=== PATIENT | male | born 1965 | race Caucasian/White ===

== ENCOUNTER 2021-12-20 09:27 | Inpatient (IN) | payer BC, SELFPAY ==
[2021-12-20] VITALS (42 sets, daily range): BP systolic 110–169; BP diastolic 76–130; PULSE 76–136; RESP 22–41; TEMP 36.4–37.2; O2SAT 90–100; BMI 23.6
--- NOTE | ~2021-12-20 | CT_ITS ---
EXAMINATION: CTA chest PE protocol DATE: 12/20/2021 12:30 INDICATION: Hypoxia. TECHNIQUE: Computed tomography angiography (CTA) of the chest was performed with 100 mL Omnipaque-350 intravenous contrast timed to evaluate the pulmonary arteries. Coronal maximum intensity projection 3D-reconstructions were created by the technologist. Automated exposure control and iterative reconst ruction technique were employed. The dose-length product was 328.36 mGy-cm. COMPARISON: None. FINDINGS: There is mild emphysema. There are tree-in-bud opacities involving all lobes. No pleural ef fusion. The heart size is normal. No pericardial effusion. There is no pulmonary embolus. There is mi ld mediastinal and bilateral hilar lymphadenopathy. There are changes of cholecystectomy. There is mi ld thoracic spondylosis. There is mild chronic anterior wedging of T7 vertebral body. IMPRESSION: 1. No pulmonary embolus. 2. Tree-in-bud opacities involving all lobes, consistent with pneumonia. 3. Mild emphysema. 4. Mild mediastinal and bilateral hilar lymphadenopathy, likely reactive. Reviewed, dictated and finalized at location A.
--- NOTE | ~2021-12-20 | XR_ITS ---
XR chest 1V portable 12/21/2021 09:14 Indication: Dyspnea. Pneumonia. Procedure: AP portable chest Comparison: Comparison to multiple prior studies sequentially, with oldest reviewed study dated 03/05. Findings: Persistent interstitial infiltrates of the mid and lower lung zones. Heart size normal. No significant effusion. No pneumothorax. No acute osseous abnormality. Impression: 1: Bilateral interstitial infiltrates which may reflect mild edema versus atypical pneumonia. No sign ificant change. Reviewed, dictated and finalized at location A. Impression: 1: Bilateral interstitial infiltrates which may reflect mild edema versus atypi librado pneumonia. No significant change.
--- NOTE | ~2021-12-20 | XR_ITS ---
EXAMINATION: XR chest 1V portable DATE: 12/22/2021 13:44 INDICATION: COVID-19 pneumonia. TECHNIQUE: A single frontal view of the chest was obtained. COMPARISON: Chest single view 12/21/2021, chest CT 12/20/2021 FINDINGS: There is a reticulonodular pattern in the lungs. No pleural effusion or pneumothorax. The h eart size is normal. IMPRESSION: 1. Stable reticulonodular pattern in the lungs, consistent with pneumonia. Reviewed, dictated and finalized at location A.
--- NOTE | ~2021-12-20 | XR_ITS ---
EXAMINATION: XR chest 1V portable 12/26/2021 10:59 INDICATION: Pneumonia. PROCEDURE: AP portable chest COMPARISON: Comparison to multiple prior studies sequentially, with oldest reviewed study dated 03/05. FINDINGS: The lungs are clear. The cardiomediastinal silhouette is within normal limits. There are no pleural effusions. There is no pneumothorax suspected. There are bilateral nipple shadows. IMPRESSION: 1: NO ACUTE CARDIOPULMONARY DISEASE. Reviewed, dictated and finalized at location A.
--- NOTE | ~2021-12-20 | XR_ITS ---
EXAMINATION: XR chest 1V portable DATE: 12/20/2021 09:53 INDICATION: Hypoxia. Cough. TECHNIQUE: A single frontal view of the chest was obtained on 2 radiographs. COMPARISON: Chest 2 views 03/23/2011 FINDINGS: There are interstitial opacities in the mid and lower lung zones. No pleural effusion or pn eumothorax. The heart size is normal. Surgical clips in the right upper quadrant are likely from chol ecystectomy. IMPRESSION: 1. Interstitial opacities in the mid and lower lung zones, consistent with mild pulmonary edema versu s atypical pneumonia. Reviewed, dictated and finalized at location A. IMPRESSION: 1. Interstitial opacities in the mid and lower lung zones, consistent with mild pulmonary edema versus atypical pneumonia.
--- NOTE | 2021-12-20 09:34 | ECG_ITS ---
Measurements Intervals [place] Rate: 111 P: [place]: 0 QRS: 123 QRSD: 142 T: 32 QT: 334 QTc: 455 Interpretive Statements SINUS TACHYCARDIA VENTRICULAR PREMATURE COMPLEXES RIGHT BUNDLE BRANCH BLOCK LEFT POSTERIOR FASCICULAR BLOCK BASELINE ARTIFACT- I, II, III, AVR, AVL, AVF, V2-V6 ABNORMAL ECG NO PREVIOUS ECG AVAILABLE FOR COMPARISON Electronically Signed On 12-20-2021 21:38:16 CDT by Manuel Prince D.O.
--- NOTE | 2021-12-20 09:45 | ED.SOB ---
HPI - SOB/Dyspnea General Chief Complaint: Shortness of Breath/Dyspnea Stated Complaint: SOB Time Seen by Provider: 12/20/21 09:34 Source: patient and RN notes reviewed Mode of arrival: EMS Limitations: clinical condition History of Present Illness HPI Narrative: This is a 56 year old year old male smoker who presents for evaluation of respiratory distress. Patient states his was diagnosed with COVID so he was tested on . He developed symptoms of covid with cough, shortness of breath and diarrhea on Tuesday. His symptoms have worsened throughout the weekend. He came to ER and he was found to be in respiratory distress, cyanotic with room air oxygen saturation 45% on room air. Nursing staff immediately placed patient on nonrebreather mask at 15L O2 His oxygen saturation increased to 100%. PAtient reports intermittent chest pain but none now. Related Data Home Medications Medication Instructions Recorded Confirmed No Home Medications 12/20/21 12/20/21 Allergies Allergy/AdvReac Type Severity Reaction Status Date / Time Penicillins Allergy Unknown Hives Verified 12/20/21 09:51 Review of Systems Review of Systems: ROS unobtainable: Yes unobtainable due to medical condition [facility] Past Medical History Medical History (Updated 12/20/21 @ 18:37 by Aurelia Craig MD) Clubbing of digits Tobacco dependence Surgical History Surgical History (Updated 12/20/21 @ 13:03 by Alessia Roa PA-C) History of bilateral carpal tunnel release History of cholecystectomy History of open reduction and internal fixation (ORIF) procedure Repair of right ankle fracture. History of tonsillectomy Family History Family History (Updated 12/20/21 @ 13:05 by Alessia Roa PA-C) Father Hypertension Coronary artery disease Mother Hypertension Social History Social History (Updated 12/20/21 @ 13:05 by Alessia Roa PA-C) Social History: Surrogate medical decision maker: Code status: Full code. Smoking packs per day: 2 Smoking cigarettes per day: 40.0 Years smoked: 40 Smoking pack-years: 80.00 Smoking status: Current every day smoker Tobacco type: cigarettes Alcohol intake: never Substance use: never Substance use type: does not use Spiritual care concerns: No Exam Const: General: ill appearing acutely Orientation/consciousness: patient oriented x3 Other: in respiratory distress, cyanotic HENMT: Head: normal to inspection Throat: uvula midline Eyes: EOM: EOMs intact bilaterally Resp: Effort & Inspection: tachypneic and uses accessory muscles Auscultation: wheezes expiratory wheezes, inspiratory wheezes and throughout Cardio: Rate: tachycardic Rhythm: regular rhythm Heart sounds: no murmurs GI: Inspection: distended GI Palp: Yes Soft to palpation, No Guarding due to palpation present (GI) and No Rigid due to palpation Auscultation: normal bowel sounds Skin: General skin exam: mottling Other: cyanotic nose, face Neuro: General: moves all extremities and CN's II-XI intact bilaterally Gait exam (Neuro): Normal gait present Extrem: General: no pedal edema Psych: Affect: Anxious affect present Course Reevaluation(s) Reevaluation #1: Patient is currently on BIPAP and he states he feels better. Started on treatment of covid pneumonia. He will be admitted to IMU for now. Date: 12/20/21 Time: 12:29 Consultations Consultation #1: I spoke with DR. Stiles about patient and he states patient can be admitted to IMU for now instead of ICU Date: 12/20/21 Time: 12:29 Vital Signs Vital signs: Vital Signs Temperature 98.6 F 12/20/21 09:31 Pulse Rate 113 H 12/20/21 09:31 Respiratory Rate 29 H 12/20/21 09:31 Blood Pressure 149/111 H 12/20/21 09:31 Pulse Oximetry 99 12/20/21 09:31 Oxygen Delivery Non-Rebreather Mask 12/20/21 09:31 Oxygen Flow Rate 15 12/20/21 09:31 Temperature 99.0 F 12/20/21 16:00 P
[2021-12-20] MEDS: IPRATROPIUM BR 0.02% INH SOLN 0.5 MG/2.5 ML VIAL 1.5 MG INHALATION (09:57)
[2021-12-20] MEDS: ALBUTEROL SULFATE NEB 2.5 MG/3 ML INH 15 MG INHALATION (09:58)
[2021-12-20 10:01] LABS: Glucose Point of Care 139 mg/dl (65-105)
[2021-12-20 10:08] LABS: Alveolar/Arterial O2 Gradient 479.2 mmHg; Base Excess ABG -3.3 mEq/l (+/-2.0); Fractional Inspired Oxygen 100 %; HCO3 ABG 26.6 mEq/l (22.0-26.0); Oxygen Content ABG 27.2 %vol (16.0-22.0); Oxygen Saturation ABG 98.8 % (95.0-100.0); Oxyhemoglobin 97.5 % THb (90.0-100.0); PO2 ABG 167.8 mmHg (80.0-100.0); PO2 FiO2 Ratio Arterial Blood 1.68 %; Total Hemoglobin 19.7 g/dL (12.0-18.0)
[2021-12-20 10:09] LABS: pH ABG 7.223 (7.350-7.450)
[2021-12-20 10:10] LABS: Device NON-REBREATHER MASK; Modified Allen's Test Pass; Site Drawn LEFT RADIAL
[2021-12-20 10:12] LABS: Basophils Absolute Auto 0.1 K/mm3 (0.0-0.1); Basophils Percent Auto 0.3 % (0.2-1.2); Eosinophils Absolute Auto 0.1 K/mm3 (0-0.3); Eosinophils Percent Auto 0.7 % (0-4.4); Hematocrit 57.8 % (42.0-52.0); Immature Granulocyte Absolute 0.09 K/mm3 (0.00-0.031); Immature Granulocyte Percent A 0.6 % (0-0.5); Lymphocytes Absolute Auto 2.17 K/mm3 (0.9-3.2); Lymphocytes Percent Auto 15.1 % (18.3-44.2); Mean Corpuscular HGB Conc 32.9 g/dl (32-36); Mean Corpuscular Hemoglobin 29.5 pg (26-34); Mean Corpuscular Volume 89.8 fl (80-100); Mean Platelet Volume 10.9 fl (7.4-10.4); Monocytes Percent Auto 13.5 % (2.6-8.5); Neutrophils Absolute Auto 10.1 K/mm3 (1.3-6.7); Neutrophils Percent Auto 69.8 % (45.5-73.1); Platelet Count Result 163 k/mm3 (150-375); Red Blood Count 6.44 M/mm3 (4.6-6.20); Red Cell Distribution Width 14.2 % (11.5-14.5); White Blood Count 14.4 K/mm3 (4.5-10.0)
[2021-12-20 10:21] LABS: Lactic Acid Reflex 2.2 mmol/L (0.7-2.0)
[2021-12-20 10:21] LABS: Partial Thromboplastin Time 29.2 SECONDS (22.3-36.8); Prothrombin Time 13.1 Seconds (11.1-14.7)
[2021-12-20 10:22] LABS: Alanine Aminotransferase 48 U/L (6-50); Albumin Level 4.7 g/dL (3.5-5.1); Alkaline Phosphatase 98 U/L (38-126); Anion Gap 17 mmol/L (8-16); Aspartate Amino Transferase 38 U/L (17-59); Blood Urea Nitrogen 15 mg/dL (9-20); Calcium 9.4 mg/dL (8.4-10.2); Carbon Dioxide 27 mmol/L (22-30); Chloride 96 mmol/L (98-107); Estimated CRCL calculation 89 ml/min; Estimated Glomerular Filt Rate > 60; Glucose 146 mg/dL (65-110); Magnesium 2.2 mg/dL (1.6-2.3); Potassium 3.3 mmol/L (3.4-5.0); Sodium 140 mmol/L (137-145)
[2021-12-20 10:34] LABS: NT Pro B Type Natriuretic Pept 204 pg/mL (5-100); Troponin I < 0.012 ng/mL (0.000-0.034)
[2021-12-20] MEDS: SODIUM CHLORIDE 0.9% IV 1,000 ML 999 ML IV CONT (10:40)
[2021-12-20] MEDS: REMDESIVIR 200 MG/NS 250 ML 200 MG/250 ML BAG 250 MG IVPB (12:43)
[2021-12-20 13:06] LABS: Reflex Lactic Acid Yes or No Add Lactic
[2021-12-20 13:38] LABS: Lactic Acid 1.7 mmol/L (0.7-2.0)
--- NOTE | 2021-12-20 14:27 | ADMGEN ---
This patient, Lauro Buchanan, was admitted to IMU Room 209-01. Patient/family oriented to hospital policies and general routines including ID bracelet, bed and alarms, visiting hours, pain management, procedures, bathroom and other care routines, personal items, smoking policy, room service/diet, and visiting hours. Information on how to activate the Rapid Response Team has been discussed. Patient/Family are encouraged to report perceived risks to care and to ask questions if they do not understand what they are told or what they should do.
--- NOTE | 2021-12-20 14:30 | PM.IMHP ---
H&P: HPI History of Present Illness Date/Time: 12/20/21 14:30 Chief Complaint: Shortness of breath. Narrative: This is a very pleasant 56-year-old male smoker with no reports of significant medical history who presented to the emergency department via private vehicle from home for evaluation of shortness of breath. He tested positive for COVID 3 days ago on after an exposure and he felt okay at that time however he developed symptoms on Tuesday to include cough, diarrhea, and progressive shortness of breath. He slept poorly last night due to shortness of breath and this morning he felt as though he was unable to catch his breath and his drove him to the ER. He presented in respiratory distress and was cyanotic with an SpO2 in the mid 40s on room air. He was immediately placed on a non-rebreather at 15 liters/minute with an FiO2 of 100%. ABG performed about 20 minutes thereafter showed a pH of 7.2 to 3, pCO2 66.0, PO2 167.8, bicarb 26.6, A-a gradient 479.2. He was placed on BiPAP and he remains on such at the time my evaluation. CTA of the chest rule out pulmonary embolism though did note pneumonia in all lobes. At the time my evaluation he feels a lot better and is asking to trial off of the BiPAP to have something to eat and drink. On exam he was noted to have clubbing of the fingernails and with further questioning he mentions that he was seen by Dr. Bahman Urbina, a licensed optical dispenser at [facility] in [place] in 2013, for evaluation of a possible PFO. To his knowledge, this was either not found or was felt to not be of any significance. He reports that his oxygen levels are always in the 90s and he does not recall ever being told that he is hypoxic. He has no known history of cardiac or pulmonary disease although he suspects he probably has at least mild COPD given his history of heavy tobacco use (up to 2 packs a day for many years). In fact he had a stress test done last fall prior to having hip replacement and that was reportedly unremarkable. Review of Systems Review of Systems: Twelve systems were reviewed. No syncope or near syncope. No confusion. No documented fever. No headache. No sore throat. He denies hemoptysis. He did have chest tightness this morning when he was really short of breath but that has resolved. No pleuritic pain. No nausea or vomiting. Diarrhea has slowed down somewhat. No orthopnea, paroxysmal nocturnal dyspnea, or lower extremity edema. He wakes up a couple of times a night to use the restroom, other than that he sleeps well. No daytime somnolence. Except as documented, all other systems were reviewed and are negative. [facility] Past Medical History Medical History (Updated 12/20/21 @ 18:37 by Aurelia Craig MD) Clubbing of digits Tobacco dependence Surgical History Surgical History (Updated 12/20/21 @ 18:55 by Alessia Roa PA-C) History of bilateral carpal tunnel release History of cholecystectomy History of open reduction and internal fixation (ORIF) procedure Repair of right ankle fracture. History of right hip replacement History of tonsillectomy Family History Family History (Updated 12/20/21 @ 13:05 by Alessia Roa PA-C) Father Hypertension Coronary artery disease Mother Hypertension Social History Social History (Updated 12/20/21 @ 18:55 by Alessia Roa PA-C) Social History: Surrogate medical decision maker: Kimberly Gonzalez, spouse. Code status: Full code. Smoking packs per day: 2 Smoking cigarettes per day: 40.0 Years smoked: 40 Smoking pack-years: 80.00 Smoking status: Current every day smoker Tobacco type: cigarettes Additional smoking assessment comments: Cutting back, now smoking around a pack a day. Alcohol intake: never Substance use: never Substance use type: does not use Spiritual care concerns: No Meds Home Medications and Allergies Home Medications Medication Instructions Recorded Confirmed Type N
[2021-12-20] MEDS: ALBUTEROL SULFATE NEB 2.5 MG/3 ML INH 5 MG INHALATION ×2 (14:58→20:00)
[2021-12-20] MEDS: IPRATROPIUM BR 0.02% INH SOLN 0.5 MG/2.5 ML VIAL INHALATION ×2 (14:58→20:11)
[2021-12-20 16:27] LABS: Alveolar/Arterial O2 Gradient 304.7 mmHg; Base Excess ABG -2.3 mEq/l (+/-2.0); Carboxyhemoglobin 0.5 % THb (0-2.0); HCO3 ABG 22.4 mEq/l (22.0-26.0); Methemoglobin ABG 0.4 %THb (0-1.5); Oxygen Content ABG 23.2 %vol (16.0-22.0); Oxygen Saturation ABG 95.8 % (95.0-100.0); Oxyhemoglobin 94.8 % THb (90.0-100.0); PCO2 ABG 38.4 mmHg (35.0-45.0); PO2 ABG 80.9 mmHg (80.0-100.0); PO2 FiO2 Ratio Arterial Blood 1.35 %; Reduced Hemoglobin 4.3 %THb (0-5.0); Total Hemoglobin 17.4 g/dL (12.0-18.0); pH ABG 7.383 (7.350-7.450)
[2021-12-20 16:28] LABS: Device NON-INVASIVE VENT; Modified Allen's Test Pass; Site Drawn RIGHT RADIAL
[2021-12-20 16:29] LABS: Fractional Inspired Oxygen 30 %; Non-Invasive Expiratory Pressure 6 CMH2O; Non-Invasive Inspiratory Pressure 14 CMH2O; Non-Invasive Vent Rate 20 /MIN
[2021-12-20] MEDS: guaiFENesin 12 HR 600 MG TABCR PO (21:02)
[2021-12-20] MEDS: POTASSIUM CHLORIDE 20 MEQ PACKET (FOR LIQUID) PO (21:02)
[2021-12-21] VITALS (26 sets, daily range): BP systolic 110–128; BP diastolic 72–86; PULSE 68–121; RESP 16–32; TEMP 36.2–37; O2SAT 90–97
--- NOTE | 2021-12-21 | ECHO_ITS ---
Patient Info Name: Lauro Buchanan Age: 56 years : 1965 Gender: Male Ht: 72 in Wt: 174 lbs BSA: 2.00 m2 HR: 68 bpm BP: 126 / 77 mmHg Heart Rhythm: Sinus Rhythm Technical Quality: Fair Exam Date: 12/21/2021 1:27 PM Exam Location: [facility] Patient Status: Inpatient Admit Date: 12/20/2021 Staff Ordering Physician: Alessia Roa PA-C Mental Health Therapist: Adele Issa RDCS Attending Provider: Harris Hale MD Referring Physician: Crispin LEVY; Exam Type: CA echo doppler color flow Study Info Indications - HYPOXIA, CLUBBING OF FINGER NAILS Complete two-dimensional, color flow and Doppler transthoracic echocardiogram is performed. Summary 1. Complete two-dimensional, color flow and Doppler transthoracic echocardiogram is performed. 2. Left ventricular chamber dimension is normal. 3. Left ventricular systolic function is normal, estimated at 60-65%. 4. Right ventricular chamber dimension is normal. 5. Intact interatrial septum visualized by Doppler imaging. 6. No shunting at the level of the atrial septum by color Doppler exam. Left Ventricle Left ventricular chamber dimension is normal. Left ventricular systolic function is normal, estimated at 60-65%. The left ventricular diastolic function is normal. Right Ventricle Right ventricular chamber dimension is normal. Left Atria Left atrial chamber dimension is normal. Right Atria Right atrial chamber dimension is normal. Atrial Septum Intact interatrial septum visualized by Doppler imaging. No shunting at the level of the atrial septum by color Doppler exam. Aortic Valve The aortic valve is normal. Pulmonic Valve The pulmonic valve is not well visualized. Mitral Valve The mitral valve has normal leaflets. There is no mitral valve regurgitation. Tricuspid Valve The tricuspid valve leaflets are normal. Pericardium/Pleural The pericardium appears normal. Aorta The aortic root size at the sinus of Valsalva is normal. Left Ventricular Outflow Tract Name Value Normal LVOT 2D LVOT Diameter 2.0 cm LVOT Doppler LVOT Peak Gradient 3 mmHg LVOT Mean Gradient 1 mmHg LVOT VTI 14 cm LVOT VTI/AV VTI Ratio 0.9 LVOT Stroke Volume 43 ml LVOT CO 4.1 l/min LVOT CI 2.0 l/min/m2 Mitral Valve Name Value Normal MV Doppler MV Decel Davie 326 cm/s2 MV PHT 61 ms MV Area (PHT) 3.6 cm2 4.0-5.0 MV Diastolic Function MV E Peak Velocity 69 cm/s MV A Peak Velocity
[2021-12-21] MEDS: ALBUTEROL SULFATE NEB 2.5 MG/3 ML INH 5 MG INHALATION (02:07)
[2021-12-21] MEDS: IPRATROPIUM BR 0.02% INH SOLN 0.5 MG/2.5 ML VIAL INHALATION ×4 (02:07→21:28)
[2021-12-21 05:35] LABS: Hematocrit 51.8 % (42.0-52.0); Hemoglobin 16.7 g/dL (14.0-18.0); Mean Corpuscular HGB Conc 32.2 g/dl (32-36); Mean Corpuscular Hemoglobin 29.3 pg (26-34); Mean Corpuscular Volume 90.9 fl (80-100); Mean Platelet Volume 10.8 fl (7.4-10.4); Platelet Count Result 160 k/mm3 (150-375); White Blood Count 8.1 K/mm3 (4.5-10.0)
[2021-12-21 05:44] LABS: INR 1.1; Prothrombin Time 13.9 Seconds (11.1-14.7)
[2021-12-21 05:54] LABS: Alanine Aminotransferase 47 U/L (6-50); Albumin Level 3.7 g/dL (3.5-5.1); Alkaline Phosphatase 81 U/L (38-126); Anion Gap 12 mmol/L (8-16); Aspartate Amino Transferase 36 U/L (17-59); Bilirubin,Total 0.4 mg/dL (0.2-1.3); Blood Urea Nitrogen 19 mg/dL (9-20); Calcium 8.8 mg/dL (8.4-10.2); Carbon Dioxide 23 mmol/L (22-30); Chloride 102 mmol/L (98-107); Estimated CRCL calculation 89 ml/min; Estimated Glomerular Filt Rate > 60; Glucose 179 mg/dL (65-110); Magnesium 2.5 mg/dL (1.6-2.3); Potassium 3.9 mmol/L (3.4-5.0); Sodium 137 mmol/L (137-145)
[2021-12-21 06:33] LABS: Thyroid Stimulating Hormone Reflex 0.392 uIU/mL (0.465-4.68)
[2021-12-21 07:04] LABS: Free T4 Free Thyroxine Reflex 1.29 ng/dL (0.78-2.19)
[2021-12-21 07:52] LABS: Total Triiodothyronine (T3) 1.07 NG/ML (0.97-1.69)
[2021-12-21] MEDS: ALBUTEROL SULFATE NEB 2.5 MG/3 ML INH INHALATION ×3 (09:26→21:28)
--- NOTE | 2021-12-21 09:29 | PM.IMPN ---
Progress Note: A&P Assessment and Plan (1) Acute respiratory failure with hypoxia and hypercapnia: Code(s): J96.01 - Acute respiratory failure with hypoxia; J96.02 - Acute respiratory failure with hypercapnia Status: Acute Assessment and Plan: Patient presented to the ER in respiratory distress and was cyanotic with an SpO2 45% on room air. ABG 7.22/66/168 on 15L and was started on BiPAP. His repeat ABG normalized. CTA chest showing no PE but multilobar tree-in-bud opacities c/w PNA, mild emphysema and reactive adenopathy. He has no known history of pulmonary disease but is positive for COVID and CXR consistent with PNA. However, with long hx of tobacco abuse, clubbing, polycythemia, and large A-a gradient, so he may have underlying chronic hypoxemia. Echo with bubble study is pending. Pulmonology consulted. Feels better today. Down to 3L O2. Wean O2 as tolerated. Continue Dexa/Remdesivir. Continue IV abx. Continue nebs. (2) COVID: Code(s): U07.1 - COVID-19 Status: Acute Assessment and Plan: He tested positive for COVID at home on 12/17. He has been started on remdesivir and dexamethasone given his oxygen requirement. CRP 18. Ferritin 407. Isolation per protocol. Repeat COVID to verify. Check for influenza as well (3) Pneumonia: Code(s): J18.9 - Pneumonia, unspecified organism Status: Acute Assessment and Plan: Concern for concurrent bacterial PNA. WBC was 14K but no fevers. He was started on empiric levofloxacin. BCx NGTD. Sputum Cx pending. Continue the same. (4) Polycythemia: Code(s): D75.1 - Secondary polycythemia Status: Acute Assessment and Plan: No baseline Hgb to compare. Hgb 19 on admission. He was given IV fluids in the ED but this was not continued. Repeat Hgb better at 16. Suspect related to chronic hypoxia. Labs sent for JAK2 mutation. (5) Tobacco dependence: Code(s): F17.200 - Nicotine dependence, unspecified, uncomplicated Status: Acute Assessment and Plan: Patient was educated about the benefits of smoking cessation. (6) Hyperglycemia: Code(s): R73.9 - Hyperglycemia, unspecified Status: Acute Assessment and Plan: Glucose 179 this morning. He may have underlying diabetes but more likely this is related to the steroids. Will place on sliding scale protocol. Check A1c. Plan DVT prophylaxis: Lovenox Code status: Full Diet: Regular Subjective Date/time seen: 12/21/21 09:29 Interval history: 56yo male with tobacco abuse here for SOB and found to have acute respiratory failure and COVID. He is vacinated and boosted but last booster was about 1 year ago. He smokes 2ppd x45yrs. He does not war O2 at home. He wore the BiPAP last night. He his minimal SOB this morning. He has a productive cough of clear sputum. No CP or palpitations. No n/v. Exam Narrative: AF 97.1 128/86 86 24 94% 3L Gen - NARD sitting up in bed Chest - distant BS with end expiratory wheezes, nml RR CV - RRR with distant S1/S2. Tele showing occasional PVCs and one episode of 6b run NSVT Abd - Soft, NT/ND, Positive BS Ext - No pedal edema Psych - Nml mood and affect Skin - Warm and dry Objective Data Vital Signs Vital Signs: Vital Signs - 24 hr 12/20/21 09:31 12/20/21 09:46 12/20/21 09:49 Temperature 98.6 F Pulse Rate 113 H 114 H Respiratory Rate 29 H Blood Pressure 149/111 H Pulse Oximetry 99 100 Oxygen Delivery Non-Rebreather Mask Non-Rebreather Mask Oxygen Flow Rate 15 15 Fraction of Inspired Oxygen 12/20/21 09:50 12/20/21 09:59 12/20/21 09:35 Temperature Pulse Rate 116 H 109 H Respiratory Rate 41 H 38 H Blood Pressure 149/111 H Pulse Oximetry 100 98 Oxygen Delivery Non-Rebreather Mask Oxygen Flow Rate 15 Fraction of Inspired Oxygen 12/20/21 09:41 12/20/21 09:46 12/20/21 10:01 Temperature Pulse Rate 115 H 114 H 118 H Respiratory Rate
[2021-12-21] MEDS: guaiFENesin 12 HR 600 MG TABCR PO ×2 (10:37→21:17)
[2021-12-21] MEDS: REMDESIVIR 100 MG/NS 250 ML 100 MG/250 ML BAG 250 MG IVPB (10:37)
[2021-12-21] MEDS: ENOXAPARIN 40 MG/0.4 ML SYRINGE SUB-Q (10:38)
--- NOTE | 2021-12-21 11:39 | WPDCDIQUERY2 ---
CDI Query Clarification Request 12/20 ER physician documented: Reevaluation(s) Reevaluation #1: Patient is currently on BIPAP and he states he feels better.? ? Started on treatment of covid pneumonia. ? He will be admitted to IMU for now. 12/21 Hospitalist documented: Pneumonia: ?Code(s): J18.9 - Pneumonia, unspecified organism ?Status:?Acute ?Assessment and Plan: Concern for concurrent bacterial PNA. WBC was 14K but no fevers. He was started on empiric levofloxacin. BCx NGTD. Sputum Cx pending. Continue the same. Please clarify if Diagnosis: Pneumonia is due to covid 19. If you agree with ER diagnosis covid pneumonia, please add to problem list.
[2021-12-21 12:21] LABS: Glucose Point of Care 249 mg/dl (65-105)
[2021-12-21 12:41] LABS: Influenza A QL RT-PCR Negative (Negative); Influenza B QL RT-PCR Negative (Negative); SARS-CoV-2 RNA PCR Positive
[2021-12-21] MEDS: INSULIN ASPART (*BKC) 100 UNITS/ML SUB-Q (12:59)
[2021-12-21 16:23] LABS: Glucose Point of Care 171 mg/dl (65-105)
[2021-12-21 20:14] LABS: Glucose Point of Care 245 mg/dl (65-105)
[2021-12-22] VITALS (27 sets, daily range): BP systolic 115–131; BP diastolic 45–79; PULSE 58–108; RESP 16–32; TEMP 36.3–37.2; O2SAT 89–100
[2021-12-22] MEDS: ALBUTEROL SULFATE NEB 2.5 MG/3 ML INH INHALATION ×4 (03:09→20:41)
[2021-12-22] MEDS: IPRATROPIUM BR 0.02% INH SOLN 0.5 MG/2.5 ML VIAL INHALATION ×4 (03:09→20:41)
[2021-12-22 04:56] LABS: Hematocrit 51.3 % (42.0-52.0); Hemoglobin 16.5 g/dL (14.0-18.0); Mean Corpuscular HGB Conc 32.2 g/dl (32-36); Mean Corpuscular Hemoglobin 29.3 pg (26-34); Mean Corpuscular Volume 91.1 fl (80-100); Mean Platelet Volume 10.2 fl (7.4-10.4); Platelet Count Result 184 k/mm3 (150-375); Red Blood Count 5.63 M/mm3 (4.6-6.20); Red Cell Distribution Width 13.9 % (11.5-14.5); White Blood Count 9.6 K/mm3 (4.5-10.0)
[2021-12-22 05:12] LABS: Alanine Aminotransferase 48 U/L (6-50); Anion Gap 11 mmol/L (8-16); Blood Urea Nitrogen 22 mg/dL (9-20); CRP 6.6 mg/dL (<1.0); Calcium 8.5 mg/dL (8.4-10.2); Carbon Dioxide 26 mmol/L (22-30); Chloride 100 mmol/L (98-107); Estimated CRCL calculation 100 ml/min; Estimated Glomerular Filt Rate > 60; Glucose 186 mg/dL (65-110); INR 1.1; Potassium 3.8 mmol/L (3.4-5.0); Prothrombin Time 14.1 Seconds (11.1-14.7); Sodium 137 mmol/L (137-145)
[2021-12-22 06:15] LABS: Hemoglobin A1C 6.8 % (<5.7)
[2021-12-22 08:09] LABS: Glucose Point of Care 154 mg/dl (65-105)
[2021-12-22] MEDS: guaiFENesin 12 HR 600 MG TABCR PO ×2 (09:04→20:32)
[2021-12-22] MEDS: ENOXAPARIN 40 MG/0.4 ML SYRINGE SUB-Q (09:04)
[2021-12-22] MEDS: REMDESIVIR 100 MG/NS 250 ML 100 MG/250 ML BAG 250 MG IVPB (09:54)
--- NOTE | 2021-12-22 10:54 | PM.IMPN ---
Progress Note: A&P Assessment and Plan (1) Acute respiratory failure with hypoxia and hypercapnia: Code(s): J96.01 - Acute respiratory failure with hypoxia; J96.02 - Acute respiratory failure with hypercapnia Status: Acute Assessment and Plan: Patient presented to the ER in respiratory distress and was cyanotic with an SpO2 45% on room air. ABG 7.22/66/168 on 15L and was started on BiPAP. His repeat ABG normalized. CTA chest showing no PE but multilobar tree-in-bud opacities c/w PNA, mild emphysema and reactive adenopathy. He has no known history of pulmonary disease but is positive for COVID and CXR consistent with PNA. However, with long hx of tobacco abuse, clubbing, polycythemia, and large A-a gradient, so he may have underlying chronic hypoxemia. Echo with bubble study showing EF 60-65% and intact interatrial septum. Pulmonology consult was held yesterday since patient was stable on 3L but now with increased O2 requirement. It has been explained to the patient that he may still worsen. CRP better. Continue to wean O2 as tolerated. Continue Dexa/Remdesivir. Continue IV abx. Continue nebs. Consult Pulmonary. Consider adding baricitinib. (2) COVID: Code(s): U07.1 - COVID-19 Status: Acute Assessment and Plan: He tested positive for COVID at home on 12/17. COVID positive here as well. Influenza negative. He has been started on remdesivir and dexamethasone given his oxygen requirement. CRP improved to 6.6. Continue isolation per protocol. (3) Pneumonia: Code(s): J18.9 - Pneumonia, unspecified organism Status: Acute Assessment and Plan: Concern for concurrent bacterial PNA related to his COVID infection. WBC was 14K but no fevers. He was started on empiric levofloxacin. BCx NGTD. Sputum Cx pending. WBC normal now. Continue the same. (4) Polycythemia: Code(s): D75.1 - Secondary polycythemia Status: Acute Assessment and Plan: No baseline Hgb to compare. Hgb 19 on admission. He was given IV fluids in the ED but this was not continued. Repeat Hgb better at 16. Suspect related to chronic hypoxia. Labs sent for JAK2 mutation. (5) Tobacco dependence: Code(s): F17.200 - Nicotine dependence, unspecified, uncomplicated Status: Acute Assessment and Plan: Patient was educated about the benefits of smoking cessation. (6) Hyperglycemia: Code(s): R73.9 - Hyperglycemia, unspecified Status: Acute Assessment and Plan: A1c 6.8. Glucose 186 this morning. 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 Continue AccuCheks covering with sliding scale. Hypoglycemia protocol available as needed. Continue to monitor. Plan DVT prophylaxis: Lovenox Code status: Full Diet: Regular Subjective Date/time seen: 12/22/21 10:54 Interval history: 56yo male with tobacco abuse here for SOB and found to have acute respiratory failure and COVID. No issues overnight. He wore the NIV. He feels SOB and still with cough. No CP. No n/v. Exam Narrative: AF 97.3 120/79 82 20 91% 6L Gen - NARD sitting up in bed Chest - distant BS with expiratory wheezes appreciated anteriorly. nml RR CV - RRR with distant S1/S2. Tele showing occasional PVCs Abd - Soft, NT/ND, Positive BS Ext - No pedal edema Psych - Nml mood and affect Skin - Warm and dry Objective Data Vital Signs Vital Signs: Vital Signs - 24 hr 12/21/21 12:00 12/21/21 12:00 12/21/21 12:00 Temperature 98.5 F Pulse Rate 86 96 96 Respiratory Rate 24 H 16 Blood Pressure 125/86 Pulse Oximetry 94 93 Oxygen Delivery Nasal Cannula Oxygen Flow Rate 3 Fraction of Inspired Oxygen 12/21/21 14:06 12/21/21 14:06 12/21/21 14:00 Temperature Pulse Rate 88 100 Respiratory Rate 20 Blood Pressure Pulse Oximetry 93 Oxygen Delivery Nasal Cannula Oxygen Flow Rate 3 Fraction of Inspired Oxygen 12/21/21 14:20 12/21/21 16:13 12/21/21
--- NOTE | 2021-12-22 12:01 | PM.CNPUL ---
Assessment and Plan Assessment and plan (1) COVID: Code(s): U07.1 - COVID-19 Status: Acute Assessment and Plan: Patient tested positive for COVID-19 on 12/17 and in house on 12/21 and started on remdesivir, dexamethasone on 12/20. Emperically started on levofloxacin. Remdesivir for 10 days unless he should recover and tolerate room air with rest, ambulation and while sleeping. - Dexamethasone 6 mg IV for 10 days - Continuous pulse oximetry - Prone positioning as tolerated. Unfortunately states he cannot tolerate prone positioning. - Avoid any fluid overload. - emperic levofloxacin, started 12/20 for CAP. - Albuterol and ipratroprium nebs Q6 for now. Few wheezes on exam today. - Negative influenza swab. Patient states that he is currently improving. He wore BiPAP last night because the staff recommended this not because he felt like he needed it. At this time I would not add additional immunosuppressants and will follow the patient overnight on nasal cannula oxygen. If the patient has rapidly increasing oxygen demands or requires airvo or BiPAP will consider additional immunosuppressants. CRP has improved from 18.0 on 12/21 to 6.6 on 12/22. (2) Acute respiratory failure with hypoxia and hypercapnia: Code(s): J96.01 - Acute respiratory failure with hypoxia; J96.02 - Acute respiratory failure with hypercapnia Status: Acute Assessment and Plan: Etiology of hypoxic and hypercarbic respiratory failure is likely COVID pneumonia. Patient also with 80 pack year tobacco use and imvd-pl-tjtsyljt apical predominant centrilobular emphysema indicating he has COPD. Of note the patient had a presentation serum bicarbonate of 27 suggesting no chronic hypercarbic respiratory failure. he presented with a hemoglobin of 19.0 as well as clubbing so he may have chronic hypoxemic respiratory failure. No evidence of fluid overload and echocardiogram with normal LVEF. 12/20 20:00 6L NC sats 95% 12/20 22:30 BiPAP overnight 12/21 08:00 3 L NC sats 94% 12/21 20:00 15 L NC sats 91%. BiPAP RR 20, 14/6, 36% overnight 12/22 08:00 3 L NC sats 91% 12/22 10:12 6 L NC sats 91% Keep saturations are 90-94% with nasal cannula up to 15 L, if fails then Airvo high flow nasal cannula, if fails then BiPAP. (3) ULISES (obstructive sleep apnea): Code(s): G47.33 - Obstructive sleep apnea (adult) (pediatric) Status: Acute Assessment and Plan: the patient tells me that about 20 years ago he snored heavily and was tested for obstructive sleep apnea with a sleep study. He tells me he tested positive and they set him home with the machine for about 1 year. He realized that if he laid on his side he did not snore and he could sleep without any trouble. He tells me a repeat study was performed on his side and that he did not have sleep apnea and that the CPAP machine was discontinued. He now sleeps on his side and has no issues. nocturnal desaturations may reflect untreated sleep apnea rather than worsening of his COVID pneumonia. History of Present Illness History of Present Illness Consult date: 12/22/21 Chief complaint: Acute Respiratory Failure with Hypoxia and Hyperca Narrative: 12/22/2021: This is a new Pulmonary consult for COVID pneumonia with hypoxemic respiratory failure. 56-year-old man with a history of tobacco use, 80 pack years, quit 2 months ago with 1 year history of dyspnea on exertion at baseline. He is on no home medicines. he received [employer] COVID vaccine X 2 and then with 1 Needl booster on April 12, 2021. the patient tells me that about 20 years ago he snored heavily and was tested for obstructive sleep apnea with a sleep study. He tells me he tested positive and they set him home with the machine for about 1 year. He realized that if he laid on his side he did not snore and he could sleep without any trouble. He tells me a repeat study was performed on his side and that he did not have sleep
[2021-12-22 12:04] LABS: Glucose Point of Care 238 mg/dl (65-105)
[2021-12-22] MEDS: INSULIN ASPART (*BKC) 100 UNITS/ML SUB-Q (12:57)
[2021-12-22] MEDS: PANTOPRAZOLE 40 MG TABLET PO (15:51)
--- NOTE | 2021-12-22 16:03 | ECG_ITS ---
Measurements Intervals [place] Rate: 71 P: 49 MN: 139 QRS: 98 QRSD: 137 T: 39 QT: 394 QTc: 430 Interpretive Statements SINUS RHYTHM RIGHT BUNDLE BRANCH BLOCK BASELINE ARTIFACT- II, III ABNORMAL ECG COMPARED TO ECG 12/20/2021 09:40:47 HEART RATE HAS DECREASED Electronically Signed On 12-22-2021 16:48:04 CDT by Manuel Prince D.O.
[2021-12-22 17:04] LABS: Glucose Point of Care 175 mg/dl (65-105)
[2021-12-22 20:13] LABS: Glucose Point of Care 251 mg/dl (65-105)
[2021-12-23] VITALS (23 sets, daily range): BP systolic 106–128; BP diastolic 71–87; PULSE 35–86; RESP 16–30; TEMP 35.9–36.8; O2SAT 88–95
[2021-12-23] MEDS: ALBUTEROL SULFATE NEB 2.5 MG/3 ML INH INHALATION ×4 (02:14→20:07)
[2021-12-23] MEDS: IPRATROPIUM BR 0.02% INH SOLN 0.5 MG/2.5 ML VIAL INHALATION ×4 (02:14→20:07)
[2021-12-23 04:58] LABS: Alanine Aminotransferase 91 U/L (6-50); Anion Gap 10 mmol/L (8-16); Blood Urea Nitrogen 25 mg/dL (9-20); Calcium 8.2 mg/dL (8.4-10.2); Carbon Dioxide 27 mmol/L (22-30); Chloride 100 mmol/L (98-107); Estimated CRCL calculation 100 ml/min; Estimated Glomerular Filt Rate > 60; Glucose 192 mg/dL (65-110); INR 1.2; Potassium 4.3 mmol/L (3.4-5.0); Prothrombin Time 14.6 Seconds (11.1-14.7); Sodium 137 mmol/L (137-145)
--- NOTE | 2021-12-23 05:20 | PC.NURSE ---
I HAVE MONITOR THE ASSESSMENT AND MEDICATION DISPENSING BY EVIN GOMEZ RN-LICENSE PENDING, FOR THIS PATIENT, AND I AGREE WITH THE EVERYTHING.
[2021-12-23 08:17] LABS: Glucose Point of Care 206 mg/dl (65-105)
[2021-12-23] MEDS: guaiFENesin 12 HR 600 MG TABCR PO ×2 (08:49→21:37)
[2021-12-23] MEDS: INSULIN ASPART (*BKC) 100 UNITS/ML SUB-Q ×3 (08:49→16:43)
[2021-12-23] MEDS: ENOXAPARIN 40 MG/0.4 ML SYRINGE SUB-Q (08:49)
[2021-12-23] MEDS: PANTOPRAZOLE 40 MG TABLET PO (08:50)
--- NOTE | 2021-12-23 09:20 | PM.PNPUL ---
Progress Note: A&P Assessment and Plan (1) COVID: Code(s): U07.1 - COVID-19 Status: Acute Assessment and Plan: Patient tested positive for COVID-19 on 12/17 and in house on 12/21 and started on remdesivir, dexamethasone on 12/20. Emperically started on levofloxacin on 12/20 . Remdesivir for 10 days unless he should recover and tolerate room air with rest, ambulation and while sleeping. - Dexamethasone 6 mg IV for 10 days - Continuous pulse oximetry - Prone positioning as tolerated. Unfortunately states he cannot tolerate prone positioning. - Avoid any fluid overload. - emperic levofloxacin, started 12/20 for CAP. - Albuterol and ipratroprium nebs Q6 for now. Few wheezes on exam today. - Negative influenza swab. 12/22 Patient states that he is currently improving. 50-60% back to normal. He wore BiPAP last night because the staff recommended this not because he felt like he needed it. At this time I would not add additional immunosuppressants and will follow the patient overnight on nasal cannula oxygen. If the patient has rapidly increasing oxygen demands or requires airvo or BiPAP will consider additional immunosuppressants. CRP has improved from 18.0 on 12/21 to 6.6 on 12/22. 12/23 The patient states that he slowly improving. He did sleep intermittently last night. He says the cough is the same he has had no fever and states that he is 75% back to his baseline. He has less dyspnea on exertion. Few wheezes left upper lobe. When I walked into the room he was on 10 L nasal cannula saturations 94%. A decreased him to 6 L nasal cannula saturations were 91%. Day number 4 Remdesivir, dexamethasone and levofloxacin. Will follow with you. (2) Acute respiratory failure with hypoxia and hypercapnia: Code(s): J96.01 - Acute respiratory failure with hypoxia; J96.02 - Acute respiratory failure with hypercapnia Status: Acute Assessment and Plan: Etiology of hypoxic and hypercarbic respiratory failure is likely COVID pneumonia. Patient also with 80 pack year tobacco use and timp-ab-xqhzltxv apical predominant centrilobular emphysema indicating he has COPD. Of note the patient had a presentation serum bicarbonate of 27 suggesting no chronic hypercarbic respiratory failure. he presented with a hemoglobin of 19.0 as well as clubbing so he may have chronic hypoxemic respiratory failure. No evidence of fluid overload and echocardiogram with normal LVEF. 12/20 20:00 6L NC sats 95% 12/20 22:30 BiPAP overnight 12/21 08:00 3 L NC sats 94% 12/21 20:00 15 L NC sats 91%. BiPAP RR 20, 14/6, 36% overnight, last use 12/22 08:00 3 L NC sats 91% 12/22 10:12 6 L NC sats 91% 12/22 22:45 6 L NC sats 95% 12/23 04:00 10 L NC sats 93% 12/23 08:30 6 L NC sats 91% Keep saturations 88-94% with nasal cannula up to 15 L, if fails then Airvo high flow nasal cannula, if fails then BiPAP. (3) COPD (chronic obstructive pulmonary disease): Code(s): J44.9 - Chronic obstructive pulmonary disease, unspecified Status: Acute Assessment and Plan: Patient with a history of 80 pack year tobacco use, quit 2 months ago, moderate to severe apical predominant centrilobular emphysema on his CT scan from 12/20/2021, I have no PFTs, worsening dyspnea on exertion over the last 1 year. I suspect the patient has COPD. Of note the patient tells me he has had clubbing since he was a child even before he began to smoke. 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 12/22 Patient had a few scattered wheezes in the left upper lobe. At this time I will continue albuterol and ipratropium nebulizers q.6 hours. 12/23 Improved but present wheezes in the left upper lobe. Continue albuterol and ipratropium nebulizers q.6 hours. (4) ULISES (obstructive sleep apnea): Code(s): G47.33 - Obstructive sleep apnea (adult) (pediatric) Status: Acute Assessment and Plan: the patient tells me that abo
[2021-12-23] MEDS: REMDESIVIR 100 MG/NS 250 ML 100 MG/250 ML BAG 250 MG IVPB (10:38)
[2021-12-23 12:11] LABS: Glucose Point of Care 259 mg/dl (65-105)
[2021-12-23 12:49] LABS: Erythropoietin (EPO) 2.6 mIU/mL (2.6-18.5)
--- NOTE | 2021-12-23 13:13 | PM.IMPN ---
Progress Note: A&P Assessment and Plan (1) Acute respiratory failure with hypoxia and hypercapnia: Code(s): J96.01 - Acute respiratory failure with hypoxia; J96.02 - Acute respiratory failure with hypercapnia Status: Acute Assessment and Plan: Feeling better, continue Levaquin, remdesivir, dexamethasone (2) COVID: Code(s): U07.1 - COVID-19 Status: Acute Assessment and Plan: He tested positive for COVID at home on 12/17. COVID positive here as well. Influenza negative. He has been started on remdesivir and dexamethasone given his oxygen requirement. (3) Pneumonia: Code(s): J18.9 - Pneumonia, unspecified organism Status: Acute Assessment and Plan: Concern for concurrent bacterial PNA related to his COVID infection. Continue Levaquin (4) Polycythemia: Code(s): D75.1 - Secondary polycythemia Status: Acute Assessment and Plan: No baseline Hgb to compare. Hgb 19 on admission. He was given IV fluids in the ED but this was not continued. Repeat Hgb better at 16. Suspect related to chronic hypoxia. Labs sent for JAK2 mutation. (5) Tobacco dependence: Code(s): F17.200 - Nicotine dependence, unspecified, uncomplicated Status: Acute Assessment and Plan: Patient was educated about the benefits of smoking cessation. (6) Hyperglycemia: Code(s): R73.9 - Hyperglycemia, unspecified Status: Acute Assessment and Plan: A1c 6.8. Glucose 186 this morning. 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 Continue AccuCheks covering with sliding scale. Hypoglycemia protocol available as needed. Continue to monitor. Plan DVT prophylaxis: Lovenox Code status: Full Diet: Regular Subjective Date/time seen: 12/23/21 13:13 Feeling better Exam Narrative: AF 97.3 120/79 82 20 91% 6L Gen - NARD sitting up in bed Chest - distant BS with expiratory wheezes appreciated anteriorly. nml RR CV - RRR with distant S1/S2. Tele showing occasional PVCs Abd - Soft, NT/ND, Positive BS Ext - No pedal edema Psych - Nml mood and affect Skin - Warm and dry Objective Data Vital Signs Vital Signs: Vital Signs - 24 hr 12/22/21 13:23 12/22/21 14:00 12/22/21 16:00 Temperature Pulse Rate 77 78 Respiratory Rate 20 Blood Pressure Pulse Oximetry 91 Oxygen Delivery Nasal Cannula Oxygen Flow Rate 3 Fraction of Inspired Oxygen 12/22/21 16:00 12/22/21 16:00 12/22/21 18:00 Temperature 98.9 F Pulse Rate 73 78 87 Respiratory Rate 18 Blood Pressure 121/78 Pulse Oximetry 93 Oxygen Delivery Oxygen Flow Rate Fraction of Inspired Oxygen 12/22/21 20:00 12/22/21 20:00 12/22/21 20:00 Temperature 98.3 F Pulse Rate 72 82 72 Respiratory Rate 20 20 Blood Pressure 115/73 Pulse Oximetry 89 L 89 L Oxygen Delivery Nasal Cannula Oxygen Flow Rate 4 Fraction of Inspired Oxygen 12/22/21 21:34 12/22/21 20:41 12/22/21 20:45 Temperature Pulse Rate 70 85 88 Respiratory Rate 20 20 Blood Pressure Pulse Oximetry Oxygen Delivery Oxygen Flow Rate Fraction of Inspired Oxygen 12/22/21 20:30 12/22/21 22:46 12/22/21 23:23 Temperature 97.9 F Pulse Rate 85 70 63 Respiratory Rate 22 H 20 24 H Blood Pressure 115/75 Pulse Oximetry 95 95 93 Oxygen Delivery Nasal Cannula High Flow Therapy with Na Oxygen Flow Rate 4 6 Fraction of Inspired Oxygen 36 12/22/21 23:38 12/23/21 00:00 12/23/21 00:00 Temperature 97.9 F Pulse Rate 63 64 63 Respiratory Rate 24 H 24 H Blood Pressure 115/75 Pulse Oximetry 93 93 Oxygen Delivery High Flow Therapy with Na High Flow Therapy with Na Oxygen Flow Rate 6 6 Fraction of Inspired Oxygen 36 12/23/21 01:40 12/23/21 02:14 12/23/21 03:00 Temperature Pulse Rate 61 57 L Respiratory Rate 18 Blood Pressure Pulse Oximetry 88 L Oxygen Delivery High Flow Therapy with Na Oxygen Flow Rate
[2021-12-23 16:49] LABS: Glucose Point of Care 321 mg/dl (65-105)
[2021-12-23 17:25] LABS: Legionella pneumophila Ag Ur Not Detected (Not Detected)
[2021-12-23 20:12] LABS: Glucose Point of Care 237 mg/dl (65-105)
[2021-12-23 21:58] LABS: Pneumococcal Antigen Urine Not Detected (Not Detected)
[2021-12-24] VITALS (19 sets, daily range): BP systolic 107–124; BP diastolic 56–79; PULSE 49–78; RESP 16–22; TEMP 36.4–36.9; O2SAT 88–97
[2021-12-24] MEDS: ALBUTEROL SULFATE NEB 2.5 MG/3 ML INH INHALATION ×2 (02:17→09:36)
[2021-12-24] MEDS: IPRATROPIUM BR 0.02% INH SOLN 0.5 MG/2.5 ML VIAL INHALATION ×2 (02:17→09:36)
[2021-12-24 05:00] LABS: INR 1.1; Prothrombin Time 14.2 Seconds (11.1-14.7)
[2021-12-24 05:02] LABS: Alanine Aminotransferase 169 U/L (6-50); Estimated CRCL calculation 89 ml/min; Estimated Glomerular Filt Rate > 60
[2021-12-24 09:09] LABS: Glucose Point of Care 151 mg/dl (65-105)
--- NOTE | 2021-12-24 09:21 | PM.PNPUL ---
Progress Note: A&P Assessment and Plan (1) COVID: Code(s): U07.1 - COVID-19 Status: Acute Assessment and Plan: Patient tested positive for COVID-19 on 12/17 and in house on 12/21 and started on remdesivir, dexamethasone on 12/20. Emperically started on levofloxacin on 12/20 . Remdesivir for 10 days unless he should recover and tolerate room air with rest, ambulation and while sleeping. - Dexamethasone 6 mg IV for 10 days - Continuous pulse oximetry - Prone positioning as tolerated. Unfortunately states he cannot tolerate prone positioning. - Avoid any fluid overload. - emperic levofloxacin, started 12/20 for CAP. - Albuterol and ipratroprium nebs Q6 for now. Few wheezes on exam today. - Negative influenza swab. 12/22 Patient states that he is currently improving. 50-60% back to normal. He wore BiPAP last night because the staff recommended this not because he felt like he needed it. At this time I would not add additional immunosuppressants and will follow the patient overnight on nasal cannula oxygen. If the patient has rapidly increasing oxygen demands or requires airvo or BiPAP will consider additional immunosuppressants. CRP has improved from 18.0 on 12/21 to 6.6 on 12/22. 12/23 The patient states that he slowly improving. He did sleep intermittently last night. He says the cough is the same he has had no fever and states that he is 75% back to his baseline. He has less dyspnea on exertion. Few wheezes left upper lobe. When I walked into the room he was on 10 L nasal cannula saturations 94%. A decreased him to 6 L nasal cannula saturations were 91%. Day number 4 Remdesivir, dexamethasone and levofloxacin. 12/24 the patient continues to improve and says that he is back to normal. He has been out of the chair and walking in the room and says that this is easier. Patient is on 6 L nasal cannula saturations 93%. Day number 5 Remdesivir, dexamethasone and levofloxacin. Recommend 10 days of remdesivir 100 and dexamethasone 6 mg unless he should come off of oxygen completely and 7 days of Levaquin. Prior to discharge he should have a home O2 assessment and the night before discharge he should have an overnight oximetry to assess his oxygenation at rest, with ambulation and at night. Prior to discharge he should have a chest x-ray to serve as a post treatment baseline. No specific pulmonary issues to follow-up with as an outpatient. He can follow up with his primary team, Genevieve Tijerina. Discussed with Dr. Awad, will sign off, call with questions. (2) Acute respiratory failure with hypoxia and hypercapnia: Code(s): J96.01 - Acute respiratory failure with hypoxia; J96.02 - Acute respiratory failure with hypercapnia Status: Acute Assessment and Plan: Etiology of hypoxic and hypercarbic respiratory failure is likely COVID pneumonia. Patient also with 80 pack year tobacco use and ohfo-av-yodwduax apical predominant centrilobular emphysema indicating he has COPD. Of note the patient had a presentation serum bicarbonate of 27 suggesting no chronic hypercarbic respiratory failure. he presented with a hemoglobin of 19.0 as well as clubbing so he may have chronic hypoxemic respiratory failure. No evidence of fluid overload and echocardiogram with normal LVEF. 12/20 20:00 6L NC sats 95% 12/20 22:30 BiPAP overnight 12/21 08:00 3 L NC sats 94% 12/21 20:00 15 L NC sats 91%. BiPAP RR 20, 14/6, 36% overnight, last use 12/22 08:00 3 L NC sats 91% 12/22 10:12 6 L NC sats 91% 12/22 22:45 6 L NC sats 95% 12/23 04:00 10 L NC sats 93% 12/23 08:30 6 L NC sats 91% 12/23 20:00 5 L NC sats 92% 12/24 08:00 6 L NC sats 94% oxygenation stable for 48 hours on 6 L nasal cannula. Keep saturations 88-94% with nasal cannula up to 15 L, if fails then Airvo high flow nasal cannula, if fails then BiPAP. (3) COPD (chronic obstructive pulmonary disease): Code(s): J44.9 - Chronic obstructive pulmonary disease, uns
[2021-12-24] MEDS: ENOXAPARIN 40 MG/0.4 ML SYRINGE SUB-Q (09:26)
[2021-12-24] MEDS: PANTOPRAZOLE 40 MG TABLET PO (09:26)
[2021-12-24] MEDS: guaiFENesin 12 HR 600 MG TABCR PO ×2 (09:26→20:24)
[2021-12-24] MEDS: UMECLIDINIUM/VILANTEROL 62.5-25 MCG ELLIPTA 1 PUFF INHALATION (10:15)
[2021-12-24] MEDS: REMDESIVIR 100 MG/NS 250 ML 100 MG/250 ML BAG 250 MG IVPB (11:26)
[2021-12-24 13:05] LABS: Glucose Point of Care 270 mg/dl (65-105)
[2021-12-24] MEDS: INSULIN ASPART (*BKC) 100 UNITS/ML SUB-Q ×2 (13:11→17:30)
--- NOTE | 2021-12-24 13:34 | PM.IMPN ---
Progress Note: A&P Assessment and Plan (1) Acute respiratory failure with hypoxia and hypercapnia: Code(s): J96.01 - Acute respiratory failure with hypoxia; J96.02 - Acute respiratory failure with hypercapnia Status: Acute Assessment and Plan: Feeling better, continue Levaquin, remdesivir, dexamethasone Will need 7 days of Levaquin and 10 days of remdesivir and dexamethasone. Monitor liver function panel. Patient will need home oxygen in overnight oxygen study prior to discharge. Chest x-ray prior to discharge as well. (2) COVID: Code(s): U07.1 - COVID-19 Status: Acute Assessment and Plan: He tested positive for COVID at home on 12/17. COVID positive here as well. Influenza negative. He has been started on remdesivir and dexamethasone given his oxygen requirement. (3) Pneumonia: Code(s): J18.9 - Pneumonia, unspecified organism Status: Acute Assessment and Plan: Concern for concurrent bacterial PNA related to his COVID infection. Continue Levaquin (4) Polycythemia: Code(s): D75.1 - Secondary polycythemia Status: Acute Assessment and Plan: No baseline Hgb to compare. Hgb 19 on admission. He was given IV fluids in the ED but this was not continued. Repeat Hgb better at 16. Suspect related to chronic hypoxia. Labs sent for JAK2 mutation. (5) Tobacco dependence: Code(s): F17.200 - Nicotine dependence, unspecified, uncomplicated Status: Acute Assessment and Plan: Patient was educated about the benefits of smoking cessation. (6) Hyperglycemia: Code(s): R73.9 - Hyperglycemia, unspecified Status: Acute Assessment and Plan: A1c 6.8. Glucose 186 this morning. 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 Continue AccuCheks covering with sliding scale. Hypoglycemia protocol available as needed. Continue to monitor. Plan DVT prophylaxis: Lovenox Code status: Full Diet: Regular Subjective Date/time seen: 12/24/21 13:34 Patient reports that he feels better. Breathing better. Still requiring oxygen. Exam Narrative: AF 97.3 120/79 82 20 91% 6L Gen - NARD sitting up in bed Chest - distant BS with expiratory wheezes appreciated anteriorly. nml RR CV - RRR with distant S1/S2. Tele showing occasional PVCs Abd - Soft, NT/ND, Positive BS Ext - No pedal edema Psych - Nml mood and affect Skin - Warm and dry Objective Data Vital Signs Vital Signs: Vital Signs - 24 hr 12/23/21 14:30 12/23/21 14:44 12/23/21 14:44 Temperature Pulse Rate 80 82 83 Respiratory Rate 18 18 18 Blood Pressure Pulse Oximetry 95 Oxygen Delivery Nasal Cannula Oxygen Flow Rate 6 Fraction of Inspired Oxygen 12/23/21 15:50 12/23/21 16:00 12/23/21 14:00 Temperature 96.7 F L Pulse Rate 67 78 Respiratory Rate 16 Blood Pressure 127/76 Pulse Oximetry 91 91 Oxygen Delivery Nasal Cannula Oxygen Flow Rate 6 Fraction of Inspired Oxygen 12/23/21 16:00 12/23/21 17:54 12/23/21 20:07 Temperature Pulse Rate 86 58 L 64 Respiratory Rate 16 Blood Pressure Pulse Oximetry Oxygen Delivery Oxygen Flow Rate Fraction of Inspired Oxygen 12/23/21 20:12 12/23/21 20:22 12/23/21 20:00 Temperature Pulse Rate 71 74 Respiratory Rate 16 Blood Pressure Pulse Oximetry 92 Oxygen Delivery High Flow Nasal Cannula Oxygen Flow Rate 5 Fraction of Inspired Oxygen 12/23/21 20:00 12/23/21 20:00 12/23/21 22:00 Temperature 97.5 F L Pulse Rate 74 73 76 Respiratory Rate 16 18 Blood Pressure 127/87 Pulse Oximetry 92 93 Oxygen Delivery High Flow Nasal Cannula Oxygen Flow Rate 4 Fraction of Inspired Oxygen 36 12/23/21 23:31 12/24/21 00:00 12/24/21 00:00 Temperature 97.7 F Pulse Rate 35 L 67 57 L Respiratory Rate 18 Blood Pressure 124/77 Pulse Oximetry 93 Oxygen Delivery Oxygen Flow Rate Fraction of Inspired
[2021-12-24 17:14] LABS: Glucose Point of Care 221 mg/dl (65-105)
[2021-12-24 19:50] LABS: Glucose Point of Care 273 mg/dl (65-105)
[2021-12-25] VITALS (7 sets, daily range): BP systolic 110–138; BP diastolic 66–95; PULSE 47–102; RESP 18–20; TEMP 36.3–36.8; O2SAT 90–97
[2021-12-25 05:23] LABS: Hematocrit 52.8 % (42.0-52.0); Hemoglobin 17.4 g/dL (14.0-18.0); Mean Corpuscular Hemoglobin 29.8 pg (26-34); Mean Corpuscular Volume 90.4 fl (80-100); Mean Platelet Volume 10.4 fl (7.4-10.4); Platelet Count Result 180 k/mm3 (150-375); Red Blood Count 5.84 M/mm3 (4.6-6.20); Red Cell Distribution Width 13.9 % (11.5-14.5); White Blood Count 8.5 K/mm3 (4.5-10.0)
[2021-12-25 05:33] LABS: INR 1.1; Prothrombin Time 13.7 Seconds (11.1-14.7)
[2021-12-25 05:36] LABS: Anion Gap 5 mmol/L (8-16); Blood Urea Nitrogen 22 mg/dL (9-20); Calcium 7.9 mg/dL (8.4-10.2); Carbon Dioxide 29 mmol/L (22-30); Chloride 101 mmol/L (98-107); Estimated CRCL calculation 89 ml/min; Estimated Glomerular Filt Rate > 60; Glucose 143 mg/dL (65-110); Potassium 4.5 mmol/L (3.4-5.0); Sodium 135 mmol/L (137-145)
[2021-12-25 06:05] LABS: Lymphocytes Absolute Manual 2.63 K/mm3 (1.1-4.5); Monocytes Absolute Manual 0.68 K/mm3 (0.1-0.90); Monocytes Percent Manual 8 % (3-9); Neutrophils Percent Manual 61 % (46-73); Platelet Estimate Adequate (Adequate); Schistocytes None Seen (NORMAL); Total Cells Counted 100
[2021-12-25 07:29] LABS: Alanine Aminotransferase 207 U/L (6-50)
[2021-12-25] MEDS: UMECLIDINIUM/VILANTEROL 62.5-25 MCG ELLIPTA 1 PUFF INHALATION (08:11)
[2021-12-25 08:19] LABS: Glucose Point of Care 140 mg/dl (65-105)
[2021-12-25] MEDS: ENOXAPARIN 40 MG/0.4 ML SYRINGE SUB-Q (09:31)
[2021-12-25] MEDS: PANTOPRAZOLE 40 MG TABLET PO (09:32)
[2021-12-25] MEDS: guaiFENesin 12 HR 600 MG TABCR PO ×2 (09:32→20:46)
--- NOTE | 2021-12-25 10:06 | PM.IMPN ---
Progress Note: A&P Assessment and Plan (1) Acute respiratory failure with hypoxia and hypercapnia: Code(s): J96.01 - Acute respiratory failure with hypoxia; J96.02 - Acute respiratory failure with hypercapnia Status: Acute Assessment and Plan: Feeling better, continue Levaquin, remdesivir, dexamethasone Will need 7 days of Levaquin and 10 days of remdesivir and dexamethasone. Monitor liver function panel. Patient will need home oxygen in overnight oxygen study prior to discharge. Chest x-ray prior to discharge as well. (2) COVID: Code(s): U07.1 - COVID-19 Status: Acute Assessment and Plan: see plan above (3) Pneumonia: Code(s): J18.9 - Pneumonia, unspecified organism Status: Acute Assessment and Plan: Concern for concurrent bacterial PNA related to his COVID infection. Continue Levaquin (4) Polycythemia: Code(s): D75.1 - Secondary polycythemia Status: Acute Assessment and Plan: No baseline Hgb to compare. Hgb 19 on admission. He was given IV fluids in the ED but this was not continued. Repeat Hgb better at 16. Suspect related to chronic hypoxia. Labs sent for JAK2 mutation. (5) Tobacco dependence: Code(s): F17.200 - Nicotine dependence, unspecified, uncomplicated Status: Acute Assessment and Plan: Patient was educated about the benefits of smoking cessation. (6) Hyperglycemia: Code(s): R73.9 - Hyperglycemia, unspecified Status: Acute Assessment and Plan: A1c 6.8. Glucose 186 this morning. 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 Continue AccuCheks covering with sliding scale. Hypoglycemia protocol available as needed. Continue to monitor. Plan DVT prophylaxis: Lovenox Code status: Full Diet: Regular Subjective Date/time seen: 12/25/21 10:06 breathing is better Exam Narrative: AF 97.3 120/79 82 20 91% 6L Gen - NARD sitting up in bed Chest - distant BS with expiratory wheezes appreciated anteriorly. nml RR CV - RRR with distant S1/S2. Tele showing occasional PVCs Abd - Soft, NT/ND, Positive BS Ext - No pedal edema Psych - Nml mood and affect Skin - Warm and dry Objective Data Vital Signs Vital Signs: Vital Signs - 24 hr 12/24/21 10:37 12/24/21 11:29 12/24/21 12:00 Temperature 98.4 F Pulse Rate 78 54 L Respiratory Rate 22 H Blood Pressure 110/78 Pulse Oximetry 92 88 L Oxygen Delivery High Flow Nasal Cannula Oxygen Flow Rate 6 12/24/21 12:00 12/24/21 16:00 12/24/21 14:00 Temperature 97.8 F Pulse Rate 64 59 L Respiratory Rate 22 H Blood Pressure 107/56 L Pulse Oximetry 89 L 94 Oxygen Delivery High Flow Nasal Cannula Oxygen Flow Rate 6 12/24/21 18:00 12/24/21 16:00 12/24/21 19:50 Temperature 98.1 F Pulse Rate 55 L 75 70 Respiratory Rate 20 Blood Pressure 116/79 Pulse Oximetry 92 Oxygen Delivery Oxygen Flow Rate 12/24/21 20:00 12/24/21 20:00 12/25/21 00:00 Temperature 98.2 F Pulse Rate 70 68 49 L Respiratory Rate 20 20 Blood Pressure 120/80 Pulse Oximetry 92 97 Oxygen Delivery High Flow Nasal Cannula Oxygen Flow Rate 6 12/25/21 00:00 12/25/21 04:00 12/25/21 04:00 Temperature 98.2 F Pulse Rate 48 L 47 L 58 L Respiratory Rate 20 Blood Pressure 125/82 Pulse Oximetry 95 Oxygen Delivery Oxygen Flow Rate 12/24/21 22:55 12/25/21 08:11 12/25/21 08:00 Temperature 97.8 F Pulse Rate 66 Respiratory Rate 18 Blood Pressure 133/95 H Pulse Oximetry 93 92 94 Oxygen Delivery High Flow Nasal Cannula High Flow Nasal Cannula Oxygen Flow Rate 6 6 Intake/Output Intake/Output: Intake & Output 12/22/21 12/23/21 12/24/21 12/25/21 23:59 23:59 23:59 23:59 Intake Total 1180 1180 2710 400 Output Total 1225 1750 2350 1325 Balance -45 -522 486 -951 Meds/Results Medications: Active Medications Generic Name Dose Route Start Last Admin
[2021-12-25] MEDS: REMDESIVIR 100 MG/NS 250 ML 100 MG/250 ML BAG 250 MG IVPB (11:20)
[2021-12-25 12:52] LABS: Glucose Point of Care 244 mg/dl (65-105)
[2021-12-25] MEDS: INSULIN ASPART (*BKC) 100 UNITS/ML SUB-Q ×2 (13:19→17:09)
--- NOTE | 2021-12-25 16:55 | PC.NURSE ---
This patient, Lauro Buchanan, was received from [[facility] ] on 12/25/21 at 1655. Patient oriented to unit policies and routines. Patient resting in bed comfortably with no complaints at this time.
--- NOTE | 2021-12-25 16:56 | ADMGEN ---
This patient, Lauro Buchanan, was admitted to [facility] Surg Room 328-01. Patient/family oriented to hospital policies and general routines including ID bracelet, bed and alarms, visiting hours, pain management, procedures, bathroom and other care routines, personal items, smoking policy, room service/diet, and visiting hours. Information on how to activate the Rapid Response Team has been discussed. Patient/Family are encouraged to report perceived risks to care and to ask questions if they do not understand what they are told or what they should do.
[2021-12-25 18:53] LABS: Glucose Point of Care 257 mg/dl (65-105)
[2021-12-25 21:08] LABS: Glucose Point of Care 232 mg/dl (65-105)
[2021-12-26] VITALS: BP 117/73; PULSE 53; PULSE 78; RESP 20; TEMP 36.6; O2SAT 91
--- NOTE | 2021-12-26 02:48 | PCRCNOTE ---
Patient refused bipap. Educated patient on the importance of using the therapy. Patient voiced understanding.
[2021-12-26 04:00] VITALS: BP 110/77; PULSE 52; PULSE 83; RESP 16; TEMP 36.3; O2SAT 90
[2021-12-26 07:00] LABS: Alanine Aminotransferase 208 U/L (6-50); Estimated CRCL calculation 89 ml/min; Estimated Glomerular Filt Rate > 60
[2021-12-26 07:31] LABS: Prothrombin Time 13.1 Seconds (11.1-14.7)
[2021-12-26 08:00] VITALS: BP 101/66; PULSE 73; PULSE 82; RESP 16; TEMP 36.6; O2SAT 90; O2SAT 92
[2021-12-26] MEDS: ENOXAPARIN 40 MG/0.4 ML SYRINGE SUB-Q (08:08)
[2021-12-26] MEDS: guaiFENesin 12 HR 600 MG TABCR PO (08:08)
[2021-12-26] MEDS: PANTOPRAZOLE 40 MG TABLET PO (08:08)
[2021-12-26 08:12] LABS: Glucose Point of Care 188 mg/dl (65-105)
[2021-12-26] MEDS: REMDESIVIR 100 MG/NS 250 ML 100 MG/250 ML BAG 250 MG IVPB (10:09)
--- NOTE | 2021-12-26 10:27 | PM.DS ---
DS: Admitting Diagnosis Discharge Date DecemberJuly 26, 2021 Admitting Diagnosis COVID pneumonia DS: Discharge Diagnosis Discharge Diagnosis (1) Acute respiratory failure with hypoxia and hypercapnia: Code(s): J96.01 - Acute respiratory failure with hypoxia; J96.02 - Acute respiratory failure with hypercapnia Status: Acute Assessment and Plan: Feeling better, continue Levaquin, remdesivir, dexamethasone Will need 7 days of Levaquin and 10 days of remdesivir and dexamethasone. Monitor liver function panel. Patient will need home oxygen in overnight oxygen study prior to discharge. Chest x-ray prior to discharge as well. (2) COVID: Code(s): U07.1 - COVID-19 Status: Acute Assessment and Plan: see plan above (3) Pneumonia: Code(s): J18.9 - Pneumonia, unspecified organism Status: Acute Assessment and Plan: Concern for concurrent bacterial PNA related to his COVID infection. Continue Levaquin (4) Polycythemia: Code(s): D75.1 - Secondary polycythemia Status: Acute Assessment and Plan: No baseline Hgb to compare. Hgb 19 on admission. He was given IV fluids in the ED but this was not continued. Repeat Hgb better at 16. Suspect related to chronic hypoxia. Labs sent for JAK2 mutation. (5) Tobacco dependence: Code(s): F17.200 - Nicotine dependence, unspecified, uncomplicated Status: Acute Assessment and Plan: Patient was educated about the benefits of smoking cessation. (6) Hyperglycemia: Code(s): R73.9 - Hyperglycemia, unspecified Status: Acute Assessment and Plan: A1c 6.8. Glucose 186 this morning. 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 Continue AccuCheks covering with sliding scale. Hypoglycemia protocol available as needed. Continue to monitor. Plan DVT prophylaxis: Lovenox Code status: Full Diet: Regular DS: Summary Hospital Course Hospital Course: patient is a 56-year-old male who came in with respiratory complications from pneumonia. Pneumonia was from COVID. Patient was started on remdesivir, Levaquin, dexamethasone. He did exceptionally well but he was slow to recover. The last 24hours or so he has been completely off oxygen. Pulmonary was also consulted and recommended a chest x-ray prior to discharge this will be ordered. Pulmonary also recommended an overnight pulse ox however patient improved significantly within 24hour period and he wants to go home instead of staying another night to do an overnight pulse ox. I think this is reasonable given the fact that he is walking around his room without any oxygen with oxygen saturations at 91%. He will follow up with Pulmonary in this can be done as an outpatient. We will also have him evaluated for home oxygen prior to discharge. Will continue dexamethasone in a game inhaler of albuterol. He will also complete 7 days of antibiotics Levaquin. Follow up with Pulmonary Time Spent with Patient Time attestation: Total time spent providing and/or coordinating discharge services: Exam Narrative: AF 97.3 120/79 82 20 91% 6L Gen - NARD sitting up in bed Chest - distant BS with expiratory wheezes appreciated anteriorly. nml RR CV - RRR with distant S1/S2. Tele showing occasional PVCs Abd - Soft, NT/ND, Positive BS Ext - No pedal edema Psych - Nml mood and affect Skin - Warm and dry DS: Data Data Completed and Pending Labs on day of discharge: Labs from last 24 hours 12/26/21 12/26/21 12/26/21 08:05 06:01 06:01 PT 13.1 INR 1.0 Creatinine 0.90 Estim Creat Clear Calc 89 Estimated GFR > 60 POC Capillary Glucose 188 H ALT 208 H 12/25/21 12/25/21 12/25/21 20:45 17:02 12:19 PT INR Creatinine Estim Creat Clear Calc Estimated GFR POC Capillary Glucose 232 H 257 H 244 H ALT Discharge Plan Discharge Attending physician on discharge: Teddy
[2021-12-26 11:52] LABS: Glucose Point of Care 309 mg/dl (65-105)
[2021-12-26 12:00] VITALS: BP 109/79; PULSE 87; RESP 20; TEMP 36.1; O2SAT 92
[2021-12-26] MEDS: INSULIN ASPART (*BKC) 100 UNITS/ML SUB-Q (12:07)
[2021-12-26 12:40] VITALS: PULSE 95; O2SAT 91
[2021-12-26 13:17] VITALS: PULSE 98; O2SAT 91
--- NOTE | 2021-12-26 13:20 | HOMEO2EVAL ---
Evaluation was performed at [facility] Home Oxygen Evaluation RC: Home Oxygen (O2) Evaluation Start: 12/26/21 10:26 Freq: ONCE Status: Discharge Protocol: RPE Activity Type Activity Date Activity User E-sign Co-sign Detail Recorded Client Recorded Date Recorded By Document 12/26/21 12:40 TJT [email or web address] 12/26/21 13:16 TJT Document 12/26/21 13:17 TJT [email or web address] 12/26/21 13:20 TJT 12/26/21 12/26/21 12:40 13:17 Home O2 Evaluation Test Phase Resting Exercise Oxygen Delivery Room Air Fraction of Inspired Oxygen (%) 21 21 Pulse Oximetry (90-100 %) 91 91 Pulse Rate (60-100 beats/min) 95 98 Activity Tolerance Good Ambulation Distance (feet) 100 Ambulation Distance (meters) 30.47 Home Oxygen Evaluation Comments Pt does not qualify for home O2 Treatment Charges O2 Evaluation - Inpatient Pt does not require Home O2
[2021-12-28 13:10] LABS: CALR Exon 9 Mutation Not Detected (Not Detected); CSF3R Exon 14/17 Mutation Not Detected (Not Detected); JAK2 Exon 12 Mutation Not Detected (Not Detected); JAK2 V617F Mutation Not Detected (Not Detected); MPL Exon 10 Mutation Not Detected (Not Detected); Specimen Source Not Given
== END 2021-12-26 13:20 | disposition home or self-care (01) | DRG 177 ==
LOC: ANHED 10:10 → ANHIMU 14:16 → ANH3MEDSUR 12-25 16:47
PROVIDERS: Physician Assistant; Admitting Provider Internal Medicine; Emergency Provider General Practice; PCP Physician Assistant; Visit Provider Chiropractor
DX: U07.1 COVID-19 (principal); J12.82 Pneumonia due to coronavirus disease 2019; J96.01 Acute respiratory failure with hypoxia; J96.02 Acute respiratory failure with hypercapnia; J43.2 Centrilobular emphysema; D75.1 Secondary polycythemia; R68.3 Clubbing of fingers; F17.210 Nicotine dependence, cigarettes, uncomplicated; R73.9 Hyperglycemia, unspecified; G47.33 Obstructive sleep apnea (adult) (pediatric); Z88.0 Allergy status to penicillin
CPT/HCPCS: 36415; 36600; 71045; 71275; 80048; 80053; 81219; 81270; 81402; 81403; 81479; 82375; 82565; 82668; 82728; 82805; 82948; 83036; 83050; 83605; 83735; 83880; 84439; 84443; 84460; 84480; 84484; 85025; 85027; 85380; 85610; 85730; 86140; 87040; 87070; 87205; 87449; 87502; 87899; 93005; 93306; 94002; 94003; 94618; 94640; 96365; 96367; 99291; A9270; C9803; J0248; J1100; J1650; J1815; J1956; J3370; J7030; Q9967; U0003; U0005

== ENCOUNTER 2022-05-26 07:56 | Outpatient (CLI) | payer BC, SELFPAY ==
--- NOTE | 2022-05-26 20:58 | WPDPFTINT ---
PFT Procedure Performed PFT Procedure Performed Spirometry with Pre/Post Bronchodilator Plethysmography (Lung Vol) Diffusing Cap (DLCO) Flow Vol Loop PFT Interpretation DOS: 05/26/2022 REQUESTING: Genevieve Tijerina PA-C REASON FOR TESTING: dyspnea PULMONARY FUNCTION TESTS Results are reliable and reproducible. Spirometry: pre bronchodilator FEV1 is 2.32 L, 58%, moderately reduced. Pre bronchodilator FVC is 3.76 L, mildly reduced, 73% predicted. FEV1/ FVC ratio is 62%, decreased, consistent with airflow obstruction. After bronchodilator administration there is a 4% change in the FEV1, 2.41 L, 61% predicted. After bronchodilator there is a 7% increase in the FVC, 4.04 L, 79%, normal. The FEV1/ FVC ratio remains decreased 60%. Lung volumes: Total lung capacity is 6.60 L, 89%, normal. Residual volume is 2.84 L, normal, 125% predicted. RV/TLC is 43%, increased and this is consistent with air trapping. Raw is 1.98, 174%, increased. Diffusion: DLCO 16.6, 55% predicted, moderately decreased. DLCO/VA is 3.08, 72%, mildly reduced. Flow volume loop: Flow volume loop shows coving of the expiratory limb consistent with airflow obstruction IMPRESSION: Moderately severe obstructive ventilatory impairment without significant response to bronchodilator, mild air trapping and moderate diffusion impairment. Lack of response to bronchodilator should not preclude use if clinically indicated. Rekha iMles MD
== END 2022-05-26 07:57 | disposition home or self-care (01) ==
PROVIDERS: PCP Physician Assistant; Visit Provider Physician Assistant
DX: R06.00 Dyspnea, unspecified (principal); R94.2 Abnormal results of pulmonary function studies
CPT/HCPCS: 94060; 94726; 94729